=== PATIENT | female | born 1970 | race Caucasian/White ===

== ENCOUNTER → 2018-07-25 | Outpatient (CLI) | payer OTHER | END | disposition home or self-care (01) | LOC: CARD 08:44 | PROVIDERS: ATTEND Internal Medicine Cardiovascular Disease | DX: R06.02 Shortness of breath (principal); I10 Essential (primary) hypertension; Z95.0 Presence of cardiac pacemaker | CPT/HCPCS: 93017; 93350 ==

== ENCOUNTER 2019-06-19 08:17 | Observation (INO) | payer OTHER ==
[2019-06-16 15:28] LABS: BASOPHILS # (AUTO) 0.01 x10^3/uL (0-0.1); BASOPHILS % (AUTO) 0 % (0-1); EOSINOPHILS % (AUTO) 0 % (1-7); LYMPHOCYTES # (AUTO) 1.75 x10^3/uL (1-3.4); LYMPHOCYTES % (AUTO) 34 % (22-44); MD NO; MEAN CORPUSCULAR HEMOGLOBIN 29.9 pg (27.0-34.8); MEAN CORPUSCULAR HGB CONC 32.8 g/dL (32.4-35.8); MEAN CORPUSCULAR VOLUME 91.3 fL (80-100); MEAN PLATELET VOLUME 9.4 fL (7.4-10.4); MONOCYTES # (AUTO) 0.29 x10^3/uL (0.2-0.8); MONOCYTES % (AUTO) 6 % (2-9); NEUTROPHILS # (AUTO) 3.11 x10^3/uL (1.8-6.8); NEUTROPHILS % (AUTO) 60 % (42-75); PLATELET COUNT 211 x10^3/uL (130-400); RED BLOOD COUNT 5.16 x10^6/uL (3.82-5.3); RED CELL DISTRIBUTION WIDTH 14.6 % (9.6-15.2)
[2019-06-16 15:35] LABS: CULTURE INDICATED? YES; MICROSCOPIC AUTO
[2019-06-16 15:39] LABS: ANION GAP 6 mmol/L (5-15); CALCIUM 9.9 mg/dL (8.5-10.1); CHLORIDE 108 mmol/L (98-107); CREATININE 0.87 mg/dL (0.55-1.02)
[2019-06-16 15:50] LABS: INTERNATIONAL NORMALIZED RATIO 1.02 (0.93-1.1); PROTHROMBIN TIME 10.7 Seconds (9.6-11.5)
[2019-06-16 16:10] LABS: HEMOGLOBIN A1C 4.9 % (4.2-6.3)
[~2019-06-19] VITALS: Ht 160 cm; Wt 63.5 kg
[~2019-06-19 08:17] MED LIST: EPINEPHRINE 1 MG/ML, 1ML ONE; KETOROLAC 60 MG/2 ML ONE; PHEN60TA PO; ROPIvacaine/PF 0.2%, 20 ML ONE; SODIUM CHLORIDE 0.9% 0 ML ONE; TRANEXAMIC ACID 100 MG/ML, 10ML ONE; VANCOMYCIN 1,000 MG ONE
[2019-06-19] MEDS ORDERED: LACTATED RINGERS 1,000 ML IV SCH (09:18)
[2019-06-19] MEDS ORDERED: HYDROmorphone 1 MG/ML, 1ML INJ IVPush PRN (09:30)
[2019-06-19] MEDS ORDERED: PROMETHAZINE 25 MG/ML, 1ML IV PRN (09:30)
[2019-06-19] MEDS ORDERED: PSYLLIUM PACKET PO PRN (09:30)
[2019-06-19] MEDS ORDERED: ACETAMINOPHEN 325 MG TABLET PO PRN (09:30)
[2019-06-19] MEDS ORDERED: MAGNESIUM HYDROXIDE 8%, 30ML UDC PO PRN (09:30)
[2019-06-19] MEDS ORDERED: MEPERIDINE/PF 25MG/ML,1ML IVPush PRN (09:30)
[2019-06-19] MEDS ORDERED: POLYETHYLENE GLYCOL 17 GM PACKET PO PRN (09:30)
[2019-06-19] MEDS ORDERED: OXYcodone IR 5MG TABLET PO PRN (09:30)
[2019-06-19] MEDS ORDERED: DIPHENHYDRAMINE 50 MG/ML, 1ML IVPush PRN (09:30)
[2019-06-19] MEDS ORDERED: ACETAMINOPHEN 500 MG TABLET PO ONE (09:30)
[2019-06-19] MEDS ORDERED: ONDANSETRON 2MG/ML, 2ML IV PRN ×2 (09:30)
[2019-06-19] MEDS ORDERED: SENNA/DOCUSATE TABLET PO PRN (09:30)
[2019-06-19] MEDS ORDERED: FENTANYL PF 100 MCG/2ML IV PRN (09:30)
[2019-06-19] MEDS ORDERED: DIPHENHYDRAMINE 50 MG CAPSULE PO PRN (09:30)
[2019-06-19] MEDS ORDERED: PROMETHAZINE 25 MG/ML, 1ML IM PRN (09:30)
[2019-06-19] MEDS ORDERED: ALUMINUM/MAG/SIMETHICONE 30 ML UDC PO PRN (09:30)
[2019-06-19] MEDS ORDERED: ONDANSETRON 4 MG TABLET PO PRN (09:30)
[2019-06-19] MEDS ORDERED: LABETALOL 5MG/ML, 20ML IV PRN (09:30)
[2019-06-19] MEDS ORDERED: hydrALAzine 20 MG/ML, 1ML IV PRN (09:30)
[2019-06-19] MEDS ORDERED: BISACODYL 10 MG SUPP PR PRN (09:30)
[2019-06-19] MEDS ORDERED: OXYcodone 5 MG/5 ML ORAL.SOL UDC PO PRN (09:30)
[2019-06-19] MEDS ORDERED: EPHEDRINE 50 MG/ML, 1ML IVPush PRN (09:30)
[2019-06-19] MEDS ORDERED: GABAPENTIN 300 MG CAPSULE PO ONE (09:30)
[2019-06-19] MEDS ORDERED: FENTANYL PF 250 MCG/5ML ONE (09:32)
[2019-06-19] MEDS ORDERED: MIDAZOLAM 1 MG/ML, 2ML ONE ×2 (09:32→13:26)
[2019-06-19] MEDS ORDERED: DEXAMETHASONE 4 MG/ML, 1ML ONE (09:34)
[2019-06-19] MEDS ORDERED: ONDANSETRON 2MG/ML, 2ML ONE (09:34)
[2019-06-19] MEDS ORDERED: PROPOFOL 10 MG/ML, 20ML ONE (09:34)
[2019-06-19] MEDS ORDERED: SUCCINYLCHOLINE 20 MG/ML, 10ML ONE (09:34)
[2019-06-19] MEDS ORDERED: CEFAZOLIN 1,000 MG ONE (09:34)
[2019-06-19] MEDS ORDERED: TRANEXAMIC ACID 100 MG/ML, 10ML ONE (10:01)
[2019-06-19] MEDS ORDERED: VANCOMYCIN 1,000 MG ONE (10:02)
[2019-06-19] MEDS ORDERED: ROPIvacaine/PF 0.2%, 20 ML ONE (10:02)
[2019-06-19] MEDS ORDERED: KETOROLAC 60 MG/2 ML ONE (10:02)
[2019-06-19] MEDS ORDERED: EPINEPHRINE 1 MG/ML, 1ML ONE (10:02)
[2019-06-19] MEDS ORDERED: SODIUM CHLORIDE 0.9% 50 ML ONE (10:02)
[2019-06-19] MEDS ORDERED: BUPIVACAINE/PF 0.25% ONE (10:07)
[2019-06-19] MEDS ORDERED: LIDOCAINE GEL 2%, 5ML ONE (10:28)
[2019-06-19] MEDS ORDERED: LIDOCAINE-MPF 2% ,5ML ONE (10:30)
[2019-06-19] MEDS ORDERED: SODIUM CHLORIDE 0.9% PF 10ML ONE (10:31)
[2019-06-19] MEDS ORDERED: HYDROmorphone 2 MG/ML, 1ML ONE (12:19)
[2019-06-19] MEDS: HYDROmorphone 2 MG/ML, 1ML IVPush PRN ×3 (12:21→12:37)
[2019-06-19] MEDS ORDERED: TRANEXAMIC ACID 1,000 MG in SODIUM CHLORIDE 0.9% 100 ML IVPB ONE (12:25)
[2019-06-19] MEDS: KETOROLAC 30 MG/1 ML IV SCH ×2 (13:32→20:50)
[2019-06-19] MEDS ORDERED: KETOROLAC 30 MG/1 ML ONE (13:36)
[2019-06-19] MEDS ORDERED: MIDAZOLAM 1 MG/ML, 2ML IVPush PRN (14:00)
[2019-06-19] MEDS: ASPIRIN 81 MG TABLET EC PO SCH (16:36)
[2019-06-19] MEDS: POTASSIUM CHLORIDE 20 MEQ in D5%-0.45% NACL 1,000 ML IV SCH (16:37)
[2019-06-19 19:43] VITALS: BP 108/69
[2019-06-19] MEDS: CEFAZOLIN PMX 1GM/50ML 50 ML IVPB SCH (20:16)
[2019-06-19] MEDS: DOCUSATE 100 MG CAPSULE PO SCH (20:50)
[2019-06-19] MEDS ORDERED: PHENOBARBITAL 30 MG TABLET PO SCH (21:00)
[2019-06-20 00:40] VITALS: BP 90/55
[2019-06-20] MEDS: POTASSIUM CHLORIDE 20 MEQ in D5%-0.45% NACL 1,000 ML IV SCH (02:27)
[2019-06-20] MEDS: CEFAZOLIN PMX 1GM/50ML 50 ML IVPB SCH (03:44)
[2019-06-20 05:08] VITALS: BP 93/63
[2019-06-20] MEDS ORDERED: KETOROLAC 30 MG/1 ML ONE (05:34)
[2019-06-20] MEDS: KETOROLAC 30 MG/1 ML IV SCH (05:36)
[2019-06-20] MEDS: ASPIRIN 81 MG TABLET EC PO SCH (05:36)
[2019-06-20] MEDS ORDERED: DEXAMETHASONE 4 MG/ML, 1ML IVPush SCH (06:00)
[2019-06-20 07:38] VITALS: BP 94/59
[2019-06-20] MEDS: DOCUSATE 100 MG CAPSULE PO SCH (08:54)
[2019-06-20] MEDS ORDERED: TAMSULOSIN 0.4 MG CAP.ER.24H PO SCH (09:00)
[2019-06-20 12:43] VITALS: BP 99/66
== END 2019-06-20 13:12 | disposition home or self-care (01) ==
LOC: OUT 08:17 → ORIP 09:24 → 4NE 15:00 → DCLOUNGE 06-20 13:00
PROVIDERS: ADMIT Orthopaedic Surgery; ATTEND Orthopaedic Surgery
DX: M17.11 Unilateral primary osteoarthritis, right knee (principal); G40.909 Epilepsy, unspecified, not intractable, without status epilepticus; G47.30 Sleep apnea, unspecified; Z88.0 Allergy status to penicillin; Z91.041 Radiographic dye allergy status; Z79.899 Other long term (current) drug therapy; Z68.22 Body mass index [BMI] 22.0-22.9, adult
CPT/HCPCS: 27447; 36415; 73560; 80048; 81001; 83036; 85014; 85018; 85025; 85610; 85730; 87081; 87086; 87389; 93005; 96365; 96366; 96375; 96376; 97110; 97161; 97530; C1713; C1776; G0378; J0171; J0330; J0690; J1100; J1170; J1885; J2250; J2405; J2704; J2795; J3010; J3480; J3490; J7120; J3370

== ENCOUNTER → 2020-05-08 | Outpatient (CLI) | payer OTHER ==
[~2020-05-08] MED LIST changes: -EPINEPHRINE 1 MG/ML, 1ML ONE; -KETOROLAC 60 MG/2 ML ONE; -ROPIvacaine/PF 0.2%, 20 ML ONE; -SODIUM CHLORIDE 0.9% 0 ML ONE; -TRANEXAMIC ACID 100 MG/ML, 10ML ONE; -VANCOMYCIN 1,000 MG ONE
== END | disposition home or self-care (01) ==
LOC: CFH 12:03
PROVIDERS: ATTEND Internal Medicine Cardiovascular Disease
DX: R60.9 Edema, unspecified (principal)

== ENCOUNTER 2020-12-06 15:34 | Emergency (ER) | payer OTHER ==
[~2020-12-06] VITALS: Ht 160 cm; Wt 60.0 kg
[2020-12-06 15:35] VITALS: BP 115/68
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
[2020-12-06] MEDS ORDERED: ACETAMINOPHEN 500 MG TABLET PO ONE (16:00)
[2020-12-06] MEDS ORDERED: IBUPROFEN 200 MG TABLET PO ONE (16:00)
[2020-12-06] MEDS ORDERED: ONDANSETRON ODT 4 MG PO ONE (16:00)
[2020-12-06] MEDS ORDERED: ONDANSETRON ODT 4 MG ONE (16:04)
[2020-12-06] MEDS ORDERED: ACETAMINOPHEN 500 MG TABLET ONE (16:04)
[2020-12-06] MEDS ORDERED: IBUPROFEN 600 MG TABLET ONE (16:04)
--- NOTE | 2020-12-06 16:09 | NUR ---
MEDS ADMIN PER SEP.
--- NOTE | 2020-12-06 17:00 | NUR ---
PT STATES PAIN IS BETTER THAN BEFORE.
== END 2020-12-06 17:08 | disposition home or self-care (01) ==
LOC: ED 17:03
DX: S09.90XA Unspecified injury of head, initial encounter (principal); M54.2 Cervicalgia; Z90.89 Acquired absence of other organs; V49.49XA Driver injured in collision with other motor vehicles in traffic accident, initial encounter; Y93.89 Activity, other specified; Y92.410 Unspecified street and highway as the place of occurrence of the external cause; Y99.8 Other external cause status
CPT/HCPCS: 99284; Q0162

== ENCOUNTER 2020-12-09 09:00 | Emergency (ER) | payer OTHER ==
[~2020-12-09] VITALS: Ht 160 cm; Wt 61.0 kg
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
--- NOTE | 2020-12-09 09:44 | NUR ---
This RN placed c-spine collar. ANASTASIA Alvarado at bedside for eval.
[2020-12-09] MEDS ORDERED: KETOROLAC 30 MG/1 ML ONE (09:57)
[2020-12-09] MEDS ORDERED: DIAZEPAM 5 MG TABLET ONE (09:57)
[2020-12-09] MEDS ORDERED: DIAZEPAM 5 MG TABLET PO ONE (10:00)
[2020-12-09] MEDS ORDERED: KETOROLAC 30 MG/1 ML IM ONE (10:00)
--- NOTE | 2020-12-09 10:34 | NUR ---
Pt to imaging.
--- NOTE | 2020-12-09 11:14 | NUR ---
Pt ambulatory to bathroom with minimal assistance and steady gait.
--- NOTE | 2020-12-09 11:44 | NUR ---
Awaiting xray read.
--- NOTE | 2020-12-09 11:58 | NUR ---
C-spine collar d/c'd by provider.
[2020-12-09 12:22] VITALS: BP 112/56
== END 2020-12-09 12:34 | disposition home or self-care (01) ==
LOC: ED 11:29
DX: S16.1XXA Strain of muscle, fascia and tendon at neck level, initial encounter (principal); S29.012A Strain of muscle and tendon of back wall of thorax, initial encounter; V49.49XA Driver injured in collision with other motor vehicles in traffic accident, initial encounter; Y93.89 Activity, other specified; Y92.89 Other specified places as the place of occurrence of the external cause; Y99.8 Other external cause status
CPT/HCPCS: 72125; 72128; 73030; 93005; 96372; 99285; J1885